=== PATIENT | female | born 1960 | race Caucasian/White ===

== ENCOUNTER → 2019-08-01 12:57 | Outpatient (CLI) | payer OTHER, SELFPAY ==
--- NOTE | 2019-08-01 | DI.MRI.S_ITS ---
PROCEDURE: MR KNEE RT WO CON INDICATIONS: Pain in right knee TECHNIQUE: Noncontrast sagittal PD fast spin echo and T2 fast spin echo with fat saturation, sagittal 3-D FLASH with fat saturation; coronal T1 spin echo and PD fast spin echo with fat saturation, and axial PD fast spin echo with fat saturation through the knee. COMPARISON: None. FINDINGS: Image quality: Excellent. Menisci: The oblique tear involving posterior horn of medial meniscus is seen extending to superior articulating surface. There is no focal medial meniscal tear. Peripheral displacement of medial meniscus is noted going medial collateral ligament. The meniscal root ligaments appear intact. Cruciate ligaments: The anterior and posterior cruciate ligaments appear intact. Medial structures: Low to moderate grade MCL sprain/partial thickness tear is seen.. The posterior oblique ligament, semimembranosus tendon insertions, oblique popliteal ligament, and meniscocapsular junction appear intact. Visualized portions of the pes anserinus tendons appear normal. No abnormal bursal fluid. Lateral structures: The lateral collateral ligament, long and short heads of the biceps femoris tendon appear intact. The popliteus tendon appears normal; the popliteofibular ligament appears intact. The posterosuperior and anteroinferior popliteomeniscal fascicles appear intact. The arcuate and fabellofibular ligaments appear intact, on either side of the lateral inferior geniculate artery. Iliotibial band appears normal. Anterior structures: The quadriceps and patellar tendons appear intact. Patellar alignment is normal. No femoral trochlear dysplasia or ventral trochlear prominence. No edema in the infrapatellar fat pad. 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 Mild edema in the weightbearing portion of medial tibial plateau is seen. No acute fracture or dislocation. Joint space: There is small to moderate amount of joint fluid. Lobulated popliteal cyst is seen and measures up to 3.9 x 2.4 x 7.4 cm in size. Normal appearing synovial plicae are incidentally noted. IMPRESSION: 1. 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 Small amount of joint fluid. Prominent lobulated popliteal cyst. 2. Peripheral displacement of medial meniscus boy medial collateral ligament. Oblique tear involving posterior horn of medial meniscus extending to superior articulating surface. No focal lateral meniscal tear. 3. Cruciate ligaments are intact. Low to moderate grade MCL sprain/partial thickness tear. Dictated by: Maikol Aaron M.D. on 08/03/2019 at 9:00 Approved by: Maikol Aaron M.D. on 08/03/2019 at 9:08
== END ==
PROVIDERS: Family Provider Physician Assistant Medical; PCP Physician Assistant Medical; Visit Provider Orthopaedic Surgery
DX: M25.561 Pain in right knee (principal); S83.221A Peripheral tear of medial meniscus, current injury, right knee, initial encounter; S83.411A Sprain of medial collateral ligament of right knee, initial encounter; M17.11 Unilateral primary osteoarthritis, right knee; M94.261 Chondromalacia, right knee; M71.21 Synovial cyst of popliteal space [Baker], right knee
CPT/HCPCS: 73721

== ENCOUNTER 2020-06-17 10:21 | Emergency (ER) | payer OTHER, SELFPAY ==
[2020-06-17 10:24] VITALS: BP 138/79; PULSE 55; RESP 18; TEMP 36.7; O2SAT 99; BMI 24.4
[2020-06-17 11:05] LABS: Add Manual Diff / Slide Review NO; Basophils Absolute Auto 100 /uL (0-100); Basophils Percent Auto 0.7 % (0-2); Eosinophils Absolute Auto 100 /uL (0-450); Eosinophils Percent Auto 1.6 % (2-4); Hematocrit 44.2 % (36-46); Hemoglobin 14.4 g/dL (12.0-16.0); Lymphocytes Absolute Auto 2500 /uL (1100-4500); Lymphocytes Percent Auto 28.9 % (25-40); Mean Corpuscular HGB Conc 32.6 % (30-36); Mean Corpuscular Hemoglobin 26.8 PG (26-34); Mean Corpuscular Volume 82.2 fL (80-100); Monocytes Absolute Auto 500 /uL (0-900); Monocytes Percent Auto 5.8 % (3-14); Neutrophils Absolute Auto 5400 /uL (1500-7000); Platelet Count 284 X10^3/uL (150-400); Red Blood Cell Count 5.38 X10^6/uL (4.0-5.2); Red Cell Distribution Width 13.3 % (11.6-14.8); White Blood Cell Count 8.5 X10^3/uL (4.5-11.0)
[2020-06-17 11:14] LABS: Prothrombin Time 11.6 SECONDS (10.1-12.7)
[2020-06-17 11:17] LABS: PTT Partial Thromboplastin Tim 31 SECONDS (26.4-36.2)
[2020-06-17 11:18] LABS: Alanine Aminotransferase 28 IU/L (<35); Albumin 4.5 g/dL (3.5-5.0); Albumin Globulin Ratio 1.5 (1.0-2.8); Alkaline Phosphatase 73 U/L (38-126); Aspartate Aminotransferase 36 IU/L (14-36); BUN Creatinine Ratio 34.3 (6-22); Bilirubin Total 0.4 mg/dL (0.2-1.3); Blood Urea Nitrogen 23 mg/dL (7-17); Calcium 9.5 mg/dL (8.4-10.2); Carbon Dioxide 31 mmol/L (22-32); Chloride 103 mmol/L (98-107); Estimated Glomerular Filt Rate > 60.0 mL/min (>60); Glucose 104 mg/dL (80-110); HEMOLYSIS < 15 (0-50); Lipase 390 U/L (23-300); Potassium 4.2 mmol/L (3.4-5.1); Sodium 140 mmol/L (137-145); Total Protein 7.5 g/dL (6.3-8.2)
[2020-06-17 13:23] VITALS: BP 135/74; PULSE 50; RESP 16; O2SAT 97
--- NOTE | 2020-06-17 13:44 | ED.ABDPAIN ---
HPI - Abdominal Pain General Chief Complaint: Abdominal Pain Stated Complaint: Stomach Pain Time Seen by Provider: 06/17/20 13:01 Source: patient Mode of arrival: Ambulatory Limitations: no limitations History of Present Illness HPI narrative: This is a 60-year-old female comes to the emergency department with concern for abdominal pain been going on for approximately a month or more. She has had nausea intermittently as well as intermittent diarrhea. She states most days of the month. Not every single day. She has had emesis. She has not had fevers or chills. She has had loose stools sometimes 2 to 3 times a day. Sometimes to large amount of stool sometimes it is a very small amount. She has been bloated. Patient has not had any black or bloody or mucousy stools. She has not had any urinary frequency, urgency or dysuria. She denies any vaginal bleeding or discharge or odor. She denies any other major medical problems. She did try probiotic the last week or so no improvement. She denies any allergies to medications. No current tobacco use, she stopped drinking alcohol 2 years ago, no illicit. She follows with GILDARDO Marley. Related Data Previous Rx's Medication Instructions Recorded omeprazole 40 mg PO DAILY #30 cap 06/17/20 Allergies Allergy/AdvReac Type Severity Reaction Status Date / Time No Known Drug Allergies Allergy Verified 06/17/20 10:30 Review of Systems Review of Systems ROS Unobtainable: All systems reviewed & are unremarkable except as noted in HPI and below Patient History Surgical History Hx of appendectomy (Acute) Social History Smoking Status: Former smoker Smoking Status: Former smoker alcohol intake frequency: 0-2 drinks per day Substance Use Type: does not use Exam Narrative Exam Narrative: GENERAL: Alert and oriented x three, well-nourished, well-appearing female in mild distress. HEENT: Head normocephalic, atraumatic, EOMI, pupils reactive, face symmetric, moist mucous membranes NECK: Supple, full range of motion CARDIOVASCULAR: Regular rate and rhythm without murmurs, rubs or gallops. RESPIRATORY: Breath sounds equal bilaterally, no wheezes rales or rhonchi. ABDOMEN: Soft, nontender. Normoactive bowel sounds all 4 quadrants. No guarding or rebound, rigidity, no mass : No CVA tenderness EXTREMITIES: Normal range of motion, no clubbing or edema. Neurovascularly intact NEUROLOGICAL: Cranial nerves II through XII grossly intact. Moving all extremities SKIN: Warm, dry, no petechiae, no rashes or lesions. Initial Vital Signs Initial Vital Signs: Vital Signs Temperature 98.1 F 06/17/20 10:24 Pulse Rate 55 L 06/17/20 10:24 Respiratory Rate 18 06/17/20 10:24 Blood Pressure 138/79 06/17/20 10:24 Pulse Oximetry 99 06/17/20 10:24 Course Orders Ordered: ED Orders 06/17/20 10:52 Complete Blood Count AUTO DIFF Stat Comprehensive Metabolic Panel Stat Lipase Stat Partial Thromboplastin Time Stat Prothrombin Time INR Stat 06/17/20 14:03 US abdomen complete Stat Reevaluation(s) Reevaluation #1: Follow-up with patient, we had discussed her labs initially on evaluation and discussed her ultrasound findings, recommendations and potential differential. Time: 16:03 Vital Signs Vital signs: Vital Signs - 8 hr 06/17/20 10:24 06/17/20 13:23 06/17/20 16:15 Temperature 98.1 F Pulse Rate 55 L 50 L 56 L Respiratory Rate 18 16 12 Blood Pressure 138/79 135/74 141/61 H Pulse Oximetry 99 97 97 MDM - Abdominal Pain Lab Data Attestation: I reviewed the patient's lab results. Lab results narrative: Patient's labs show a mildly elevated BUN her lipase is also elevated 390 normal cut off is 300. Her other LFTs are normal. White count is in normal range with eosinophils of 1.6. Coags are normal. Urine does not show any changes consistent with infection Result diagrams: 06/17/20 10:52 06/17/20 10:52 Labs: Lab Results 06/17/20 06/17/20 06/17/20 Range/Units 10:52 10:52 10:52 WBC 8.5 (4.5-11.0) X10^3/uL RBC 5.38 H (4.0-5.2) X10^6/uL Hgb 14.4 (12.0-16.0) g/dL Hct 44.2 (36-46) % MCV 82.2 (80-100) fL MCH 26.8 (26-34) PG MCHC 32.6 (30-36) % RDW 13.3 (11.6-14.8) % Plt Count 284 (150-400) X10^3/uL Neut % (Auto) 63.0 (50-75) % Lymph % (Auto) 28.9 (25-40) % [place] % (Auto) 5.8 (3-14) % Eos % (Auto) 1.6 L (2-4) % Baso % (Auto) 0.7 (0-2) % Neut # (Auto) 5400 (2811-8261) /uL Lymph # (Auto) 2500 (4205-8424) /uL Sheridan # (Auto) 500 (0-900) /uL Eos # (Auto) 100 (0-450) /uL Baso # (Auto) 100 (0-100) /uL PT 11.6 (10.1-12.7) SECONDS INR 1.0 (0.9-1.3) APTT 31 (26.4-36.2) SECONDS Sodium 140 (137-145) mmol/L Potassium 4.2 (3.4-5.1) mmol/L Chloride 103 (98-107) mmol/L Carbon Dioxide 31 (22-32) mmol/L BUN 23 H (7-17) mg/dL Creatinine 0.67 (0.52-1.04) mg/dL Estimated GFR > 60.0 (>60) mL/min BUN/Creatinine Ratio 34.3 H (6-22) Glucose 104 (80-110) mg/dL Calcium 9.5 (8.4-10.2) mg/dL Total Bilirubin 0.4 (0.2-1.3) mg/dL AST 36 (14-36) IU/L ALT 28 (<35) IU/L Alkaline Phosphatase 73 (38-126) U/L Total Protein 7.5 (6.3-8.2) g/dL Albumin 4.5 (3.5-5.0) g/dL Globulin 3.0 (1.7-4.1) g/dL Albumin/Globulin Ratio 1.5 (1.0-2.8) Lipase 390 H (23-300) U/L Point of care testing: Urine Dip Bedside Urine Glucose Negative Bedside Urine Bilirubin - Negative Bedside Urine Ketone - Negative Urine Specific [place] 1.005 Bedside Urine Occult Blood - Negative Bedside Urine pH 6.0 Bedside Urine Protein - Negative Bedside Urine Urobilinogen - Negative Bedside Urine Nitrite - Negative Bedside Urine Leukocytes - Negative Esterase Imaging Data US - abdomen: Radiologist's Impression: [address] [address] Ultrasound Report Signed Patient: Ellyn Manley LMR#: [id number] : 1960Acct:[id number] Age/Sex: 60 / FDate of Service: 06/17/20 Loc: ED Accession Number: [id number] Procedure: US abdomen complete Ordering Provider: Marly Pop D.O. PROCEDURE: US ABDOMEN COMPLETE INDICATIONS: EPIGASTRIC ABDOMINAL PAIN. DIARRHEA AND NAUSEA. TECHNIQUE: Real-time scanning was performed of the abdominal and retroperitoneal organs, with image documentation. COMPARISON: None. FINDINGS: Liver: Liver is normal in size and homogeneous in echotexture. Gallbladder: No gallstones. No gallbladder wall thickening, pericholecystic fluid or sonographic Chakraborty's sign. Biliary ducts: Intrahepatic bile ducts are non-dilated. Extrahepatic bile duct caliber measures 3.1 mm. Normal is 6-7 mm or less in diameter, or 10 mm or less post-cholecystectomy. Pancreas: Visualized portions of the pancreas are sonographically normal. Spleen: Spleen is normal in size and homogeneous in echotexture. Kidneys: Kidneys are normal in size and echotexture. Right kidney measures 9.1 cm long; left kidney measures 9.1 cm long. No hydronephrosis or nephrolithiasis. No solid masses. Aorta: Visualized aorta is normal in caliber at less than 3 cm. Iliacs: Proximal common iliac arteries are normal in caliber at less than 2.5 cm. IVC: Intrahepatic inferior vena cava is patent. Miscellaneous: No free abdominal fluid. IMPRESSION: Normal abdominal ultrasound exam. Dictated by: Seb Calderon M.D. on 06/17/2020 at 15:06 Approved by: Seb Calderon M.D. on 06/17/2020 at 15:07 [facility] Narrative Medical decision making narrative: Patient comes in for about a month or so of abdominal pain with nausea but no vomiting and loose stools sometimes several times a day but not every day. Patient has epigastric but lower abdominal pain as well. She has a benign abdominal exam. Labs show an elevated lipase that is mildly elevated from normal range. No other major lab abnormalities. Patient has a normal abdominal ultrasound. We did discuss that there is potential for ulcers or gastritis and would recommend a PPI such as omeprazole daily to see if this improves her symptoms. I would also recommend follow-up with General surgery or Gastroenterology if she continues to have symptoms for possible EGD and/or colonoscopy. There was some concern from the patient about celiac, gluten sensitivity or other potential causes and these would be evaluated by scope. Patient does not have any physical exam findings or HPI that leads me to believe she has appendicitis or emergent infection in her abdomen. We did discuss reasons to return, signs and symptoms to watch for and given referral for follow-up. Discharge Plan Departure Patient Disposition: Home Clinical Impression: Elevated lipase Discharge Date/Time: 06/17/20 16:20 Instructions: DI for Abdominal Pain-Adult Activity Restrictions/Additional Instructions: Follow-up with general surgery or Gastroenterology for further evaluation and possibly endoscopy or colonoscopy. Take medication once daily until gone, if this improves your symptoms I would recommend taking on a daily basis. I would also recommend keeping track of any patterns or foods that may be exacerbating her symptoms. Return to the ER for fevers, rapidly worsening abdominal pain, persistent vomiting, black or bloody stools, lightheadedness, passing out or other new or concerning symptoms. Prescriptions: New omeprazole 40 mg capsule,delayed release(DR/EC) 40 mg PO DAILY Qty: 30 RF: 0 Referrals: Mel Barrera MD [Physician] - Doron Wallace MD [Physician] - Delmi Marley PA-C [Primary Care Provider] -
--- NOTE | 2020-06-17 14:03 | DI.US.S_ITS ---
PROCEDURE: US ABDOMEN COMPLETE INDICATIONS: EPIGASTRIC ABDOMINAL PAIN. DIARRHEA AND NAUSEA. TECHNIQUE: Real-time scanning was performed of the abdominal and retroperitoneal organs, with image documentation. COMPARISON: None. FINDINGS: Liver: Liver is normal in size and homogeneous in echotexture. Gallbladder: No gallstones. No gallbladder wall thickening, pericholecystic fluid or sonographic Chakraborty's sign. Biliary ducts: Intrahepatic bile ducts are non-dilated. Extrahepatic bile duct caliber measures 3.1 mm. Normal is 6-7 mm or less in diameter, or 10 mm or less post-cholecystectomy. Pancreas: Visualized portions of the pancreas are sonographically normal. Spleen: Spleen is normal in size and homogeneous in echotexture. Kidneys: Kidneys are normal in size and echotexture. Right kidney measures 9.1 cm long; left kidney measures 9.1 cm long. No hydronephrosis or nephrolithiasis. No solid masses. Aorta: Visualized aorta is normal in caliber at less than 3 cm. Iliacs: Proximal common iliac arteries are normal in caliber at less than 2.5 cm. IVC: Intrahepatic inferior vena cava is patent. Miscellaneous: No free abdominal fluid. IMPRESSION: Normal abdominal ultrasound exam. Dictated by: Seb Calderon M.D. on 06/17/2020 at 15:06 Approved by: Seb Calderon M.D. on 06/17/2020 at 15:07
[2020-06-17 16:15] VITALS: BP 141/61; PULSE 56; RESP 12; O2SAT 97
== END 2020-06-17 16:20 | disposition home or self-care (01) ==
PROVIDERS: Emergency Provider Emergency Medicine; Family Provider Physician Assistant Medical; PCP Physician Assistant Medical
DX: R74.8 Abnormal levels of other serum enzymes (principal); R10.9 Unspecified abdominal pain; R19.7 Diarrhea, unspecified; R11.0 Nausea
CPT/HCPCS: 36415; 76700; 80053; 81003; 83690; 85025; 85610; 85730; 99284

== ENCOUNTER → 2020-09-12 09:07 | Outpatient (CLI) | payer OTHER, SELFPAY ==
[2020-09-12 11:59] LABS: COVID19 -Nasal RAPID Negative (Negative)
== END ==
PROVIDERS: Family Provider Physician Assistant Medical; PCP Physician Assistant Medical; Visit Provider Physician Assistant
DX: Z01.812 Encounter for preprocedural laboratory examination (principal); Z20.822 Contact with and (suspected) exposure to COVID-19
CPT/HCPCS: 87635

== ENCOUNTER 2020-09-14 10:33 | Day surgery (SDC) | payer OTHER, SELFPAY ==
[2020-09-14] VITALS (7 sets, daily range): BP systolic 112–135; BP diastolic 58–71; PULSE 50–61; RESP 14–18; TEMP 36.4–37.2; O2SAT 99–100; BMI 25.7
--- NOTE | 2020-09-14 | PATH_ITS ---
[facility] Accession Number: [id number] . 01 Material submitted: . PART A: cecum - CECAL POLYP PART B: colon - RIGHT COLON PART C: colon - LEFT COLON . 01 Clinical history: . B: R/O MICROSCOPIC COLITIS C: R/O MICROSCOPIC COLITIS . 02 Diagnosis: A. Cecum, Polyp, Biopsy: Sessile serrated adenoma. . B-C: Right Colon, Left Colon, Biopsies: Colonic mucosa with patchy mildly increased intraepithelial lymphocytosis, consistent with lymphocytic colitis. Negative for granulomas, dysplasia and malignancy. MRV 09/19/2020 1348 Local . 02 Electronically signed: . Courtney Ashley MD, Pathologist NPI- [id number] . 01 Gross description: . Part A: CECAL POLYP: Received in formalin is 1 fragment(s) of espinal, soft tissue measuring 0.8 x 0.4 x 0.3 cm submitted entirely in 1 cassette(s) Part B: RIGHT COLON: Received in formalin are multiple fragment(s) of espinal, soft tissue measuring 0.1 x 0.1 x 0.1 cm to 0.3 x 0.3 x 0.2 cm submitted entirely in 1 cassette(s) Part C: LEFT COLON: Received in formalin are multiple fragment(s) of espinal, soft tissue measuring 0.1 x 0.1 x 0.1 cm to 0.5 x 0.2 x 0.2 cm submitted entirely in 1 cassette(s) /GEORGE 09/15/2020 1933 Local . 02 Pathologist provided ICD-10: R19.7, D12.0, K52.89 . 02 CPT . 497082, 043365, 443332 Performed at: [address] [place] [address] [address], [place], [place] [id number] MD Jose F Olivas MD Phone: [phone] Performed at: [address] [id number] MD Courtney Ashley MD Phone: [phone]
[2020-09-14] MEDS: SODIUM CHLORIDE 0.9% 1,000 ML 70 ML IV (08:00)
--- NOTE | 2020-09-14 08:05 | PM.HP.1 ---
History of Present Illness History of Present Illness Date Patient Seen: 09/14/20 Chief complaint: DX COLONOSCOPY Narrative: 60-year-old female seen in our office on 07/26/2020 due to abdominal pain and changes in bowel habits here for colonoscopy with random colon biopsies Patient History Surgical History Hx of appendectomy Family & Social History Tobacco & Substance use: Smoking Status Former smoker alcohol intake frequency 0-2 drinks per day Substance Use Type does not use Meds Home Medications and Allergies Allergies Allergy/AdvReac Type Severity Reaction Status Date / Time No Known Drug Allergies Allergy Verified 06/17/20 10:30 Exam Narrative Exam Narrative: General: Patient is well developed, not in apparent distress Cardiovascular: Regular rate and rhythm, no murmurs, rubs, or gallops; no evidence of edema; no palpable abdominal aortic aneurysm Gastrointestinal: Normoactive bowel sounds, soft, nontender, nondistended, no rebound tenderness, no hepatosplenomegaly, no evidence of hernia Assessment & Plan Assessment & Plan narrative: 60-year-old female with history of change in bowel habits here for further evaluation by means of colonoscopy Regarding the procedure(s), the risks and potential complications, benefits, and alternatives (including not doing the procedure) were discussed with the patient. The risks include but are not limited to bleeding, splenic injury, infection, perforation which may require surgical intervention, missed lesions, and adverse reactions to sedative medicines. After a question and answer period, the patient agreed to proceed with the procedure(s) and gives informed consent.
--- NOTE | 2020-09-14 11:11 | PM.OP.ENDO ---
Operative Date/Time/Diagnoses Date of procedure: 09/14/20 Procedure Notes Procedure in detail: Surgeon: Stanley Rios MD Procedure: Colonoscopy with polypectomy and random biopsies Preoperative diagnosis: Change in bowel habits Postoperative diagnosis: Cecal polyp; normal colonic mucosa status post biopsies Medications: Conscious sedation using 5 mg IV of Midazolam and 100 mcg IV of Fentanyl Preanesthesia Assessment An H and P was performed/updated and the Px?s ASA class is 1. The procedure was discussed in detail with the patient. The potential risks and complications including infection, bleeding, missed lesions, perforation, need for surgery in case of perforation, prolonged hospital stay, and were explained. A brief question and answer period was allotted and once all questions were answered, informed consent was obtained. The patient was brought back to the procedure room and placed on standard monitoring. The patient?s vital signs were monitored continuously throughout the entire procedure. Prior to starting, a timeout was performed to confirm the patient?s identity, allergies, medications, and procedure. Procedure in detail The patient was placed in left lateral decubitus position and once adequate sedation was obtained a BASILIO was performed. The digital rectal examination did not reveal any palpable lesions. The tip of the colonoscope was placed in the anal canal and advanced without difficulty all the way to the cecum which was identified by the appendiceal orifice and the ileocecal valve. The sigmoid colon was noted to be tortuous. The terminal ileum was intubated to a distance of 5 cm from the ileocecal valve and the mucosa appeared normal. The colonoscope was brought back to the cecum and careful examination of all gagnon of the colon was performed with irrigation of any residual stool. In the cecum, a 5 mm sessile polyp was found and was removed by means of cold snare. Resection and retrieval were complete with minimal bleeding The colonic mucosa appeared normal throughout the entire colon. Random were taken from the right and left colon to check for microscopic colitis. There was minimal bleeding The patient tolerated the procedure well and will be brought back to the recovery area to be discharged once criteria are met. The prep was judged to be good and adequate to identify polyps less than 5 mm. The withdrawal time was 9 minutes. The total physician intraservice time was 23 minutes. Complications There were no complications and estimated blood loss was minimal. Recommendations: Resume previous diet Follow up pathology results Repeat colonoscopy in 12/16 or 10 years depending on pathology results Follow-up at our office ([facility]) with Dolly Lopez. Call our office if you have not heard back from our schedulers in the next 1 week An emergency contact number was given to the patient for any complications related to the procedure
[2020-09-14] MEDS: fentaNYL 250 MCG/5 ML INJ IV (11:14)
[2020-09-14] MEDS: MIDAZOLAM 5 MG/5 ML VIAL IV (11:21)
--- NOTE | 2020-09-14 12:31 | SUR.PHASEII ---
pt's called and a message was left on his cell phone that she was done and ready to go home. pt. also called him on his cell phone and had to leave a message.
== END 2020-09-14 12:30 | disposition home or self-care (01) ==
PROVIDERS: Family Provider Physician Assistant Medical; PCP Physician Assistant Medical; Referring Provider Physician Assistant Medical; Visit Provider Internal Medicine Gastroenterology
PROC: 0DJD8ZZ Inspection of Lower Intestinal Tract, Via Natural or Artificial Opening Endoscopic (ICD-10-PCS; CPT 45378; principal; 2020-09-14 11:30)
DX: R19.4 Change in bowel habit (principal); R19.7 Diarrhea, unspecified; D12.0 Benign neoplasm of cecum
CPT/HCPCS: 45385; 45380; J2250; J3010